=== PATIENT | female | born 1965 | race Caucasian/White ===

== ENCOUNTER 2019-02-09 16:09 | Emergency (ER) | payer OTHER ==
[~2019-02-09] VITALS: Ht 180.3 cm; Wt 113.4 kg
--- NOTE | 2019-02-09 16:14 | NUR ---
SARWAT RA 100 FROM HOME, C/O ABDOMINAL PAIN, NAUSEA AND VOMITING STARTED TODAY. TO ER BED 2, HOOKED TO MONITOR CHANGED TO GOWN, WARM BLANKET PROVIDED. AWAITING MD WAHL.
--- NOTE | 2019-02-09 16:16 | NUR ---
DATA WAREHOUSE DEVELOPER DEGRASSE AT BEDSIDE
--- NOTE | 2019-02-09 16:20 | NUR ---
PATIENT NOT ABLE TO PROVIDE URINE SAMPLE, MADE PRESS CLIPPINGS CUTTER AND PASTER AWARE
--- NOTE | 2019-02-09 16:27 | NUR ---
PER PATIENT "I'M ALLERGIC TO CODEINE, BUT I'M OK WITH MORPHINE AND DILAUDID".
[2019-02-09] MEDS ORDERED: MORPHINE SULFATE INJ 2 MG/ML DISP.SYRIN IV ONE (16:30)
[2019-02-09] MEDS ORDERED: IV NS 0.9% 1,000 ML BAG IV ONE (16:30)
[2019-02-09] MEDS ORDERED: ONDANSETRON HCL/PF 4 MG/2 ML VIAL IVP ONE (16:30)
[2019-02-09] MEDS ORDERED: diphenhydrAMINE HCL 50 MG/ML VIAL ONE (16:36)
[2019-02-09] MEDS ORDERED: ONDANSETRON HCL/PF 4 MG/2 ML VIAL ONE (16:36)
[2019-02-09] MEDS ORDERED: MORPHINE SULFATE INJ 4 MG/ML DISP.SYRIN ONE (16:36)
[2019-02-09] MEDS ORDERED: METOCLOPRAMIDE HCL 10 MG/2 ML VIAL ONE (16:37)
[2019-02-09 16:39] LABS: BASOPHILS # (AUTO) 0.1 /CMM (0.0-0.2); BASOPHILS % (AUTO) 0.6 % (0.0-2.0); EOSINOPHILS % (AUTO) 0.8 % (0.0-6.0); HEMATOCRIT 49 % (33-45); HEMOGLOBIN 16.6 g/dL (11.5-14.8); LYMPHOCYTES # (AUTO) 1.7 /CMM (0.8-4.8); LYMPHOCYTES % (AUTO) 11.4 % (20.0-44.0); MEAN CORPUSCULAR HGB CONC 34 g/dl (31.0-36.0); MEAN CORPUSCULAR VOLUME 90 fL (82-100); MONOCYTES # (AUTO) 0.5 /CMM (0.1-1.30); MONOCYTES % (AUTO) 3.6 % (2.0-12.0); NEUTROPHILS # (AUTO) 12.4 /CMM (1.8-8.9); NEUTROPHILS % (AUTO) 83.6 % (43.0-81.0); PLATELET COUNT (AUTO) 246 /CMM (150-450); RED BLOOD CELL COUNT(AUTO) 5.42 MIL/uL (4.0-5.2); WHITE BLOOD COUNT (AUTO) 14.8 K/uL (4.3-11.0)
[2019-02-09 16:52] LABS: CALCIUM, SERUM 9.8 mg/dL (8.5-10.1)
[2019-02-09] MEDS ORDERED: diphenhydrAMINE HCL 50 MG/ML VIAL IV ONE (17:00)
[2019-02-09] MEDS ORDERED: METOCLOPRAMIDE HCL 10 MG/2 ML VIAL IV ONE (17:00)
[2019-02-09 17:04] LABS: ALBUMIN 3.9 g/dL (3.4-5.0); BILIRUBIN,DIRECT 0.1 mg/dL (0.0-0.2); BILIRUBIN,TOTAL 0.4 mg/dL (0.2-1.0); TOTAL PROTEIN, SERUM 8.4 g/dL (6.4-8.2)
--- NOTE | 2019-02-09 17:55 | NUR ---
IV removed. Catheter intact and site benign. Pressure and 4x4 applied to site. No bleeding noted.Patient discharged to home in stable condition. Written and verbal after care instructions given. Patient verbalizes understanding of instruction.
[2019-02-09 18:01] VITALS: BP 167/82
== END 2019-02-09 18:02 | disposition home or self-care (01) ==
LOC: ER 16:11
DX: R11.2 Nausea with vomiting, unspecified (principal); R10.84 Generalized abdominal pain; E66.01 Morbid (severe) obesity due to excess calories; I10 Essential (primary) hypertension; Z68.34 Body mass index [BMI] 34.0-34.9, adult; Z88.5 Allergy status to narcotic agent
CPT/HCPCS: 36415; 80048; 80076; 82962; 83690; 85025; 85730; 96361; 96374; 96375; 99283; J1200; J2270; J2405; J2765; J7030 ×2

== ENCOUNTER 2020-04-14 11:59 | Emergency (ER) | payer OTHER ==
[~2020-04-14] VITALS: Ht 172.7 cm; Wt 113.4 kg
--- NOTE | 2020-04-14 12:05 | NUR ---
DR. TOBAR AT FOR EVAL.
[2020-04-14] MEDS ORDERED: NITROGLYCERIN 0.4 MG/TAB BOTTLE ONE (12:12)
[2020-04-14] MEDS ORDERED: ASPIRIN 325 MG TABLET ONE (12:13)
[2020-04-14] MEDS ORDERED: ASPIRIN 325 MG TABLET PO ONE (12:30)
[2020-04-14] MEDS ORDERED: IV NS 0.9% 1,000 ML BAG IV ONE (12:30)
[2020-04-14] MEDS ORDERED: ONDANSETRON HCL/PF 4 MG/2 ML VIAL IVP ONE (12:30)
[2020-04-14] MEDS ORDERED: KETOROLAC TROMETHAMINE INJ 30 MG/ML VIAL IV ONE (12:30)
[2020-04-14] MEDS ORDERED: NITROGLYCERIN 0.4 MG/TAB BOTTLE SL ONE (12:30)
[2020-04-14] MEDS ORDERED: ONDANSETRON HCL/PF 4 MG/2 ML VIAL ONE (12:35)
[2020-04-14] MEDS ORDERED: KETOROLAC TROMETHAMINE 15 MG/ML VIAL ONE (12:35)
--- NOTE | 2020-04-14 12:48 | NUR ---
[id number] PT C/O CP X 1WK, DENIES CP, SOB, DIZZINESS AT THIS TIME. PT ONLY C/O ABD PAIN & NAUSEA. PLACED ON SIGN BOARD ERECTOR, SR. MEDICATED FOR PAIN & NAUSEA PER ERMD ORDER, PT AJAY WELL. WILL CONT TO MONITOR.
[2020-04-14 12:52] LABS: BASOPHILS # (AUTO) 0.1 /CMM (0.0-0.2); BASOPHILS % (AUTO) 0.6 % (0.0-2.0); EOSINOPHILS % (AUTO) 2.3 % (0.0-6.0); HEMATOCRIT 48 % (33-45); HEMOGLOBIN 16.2 g/dL (11.5-14.8); LYMPHOCYTES # (AUTO) 2.3 /CMM (0.8-4.8); LYMPHOCYTES % (AUTO) 20.1 % (20.0-44.0); MEAN CORPUSCULAR HGB CONC 34 g/dl (31.0-36.0); MEAN CORPUSCULAR VOLUME 90 fL (82-100); MONOCYTES # (AUTO) 0.8 /CMM (0.1-1.30); MONOCYTES % (AUTO) 6.7 % (2.0-12.0); NEUTROPHILS # (AUTO) 8.1 /CMM (1.8-8.9); NEUTROPHILS % (AUTO) 70.3 % (43.0-81.0); PLATELET COUNT (AUTO) 249 /CMM (150-450); RED BLOOD CELL COUNT(AUTO) 5.39 MIL/uL (4.0-5.2); WHITE BLOOD COUNT (AUTO) 11.5 K/uL (4.3-11.0)
[2020-04-14 12:57] LABS: CALCIUM, SERUM 9.6 mg/dL (8.5-10.1); CARBON DIOXIDE 27 mmol/L (21-32); CHLORIDE 103 mmol/L (98-107); CREATININE 0.9 mg/dL (0.6-1.3); GLUCOSE 129 mg/dL (74-106); POTASSIUM 3.9 mmol/L (3.5-5.1); SODIUM SERUM 140 mmol/L (136-145); UREA NITROGEN, BLOOD 16 mg/dL (7-18)
[2020-04-14 13:10] LABS: B-TYPE NATRIURETIC PEPTIDE 11 PG/ML (0-125)
[2020-04-14 13:26] LABS: ALBUMIN 3.4 g/dL (3.4-5.0); BILIRUBIN,DIRECT 0.1 mg/dL (0.0-0.2); BILIRUBIN,TOTAL 0.4 mg/dL (0.2-1.0); TOTAL PROTEIN, SERUM 7.5 g/dL (6.4-8.2)
--- NOTE | 2020-04-14 15:12 | NUR ---
PT STABLE, DENIES CP, SOB, DIZZINESS, N/V AT THIS TIME. WILL CONT TO MONITOR.
[2020-04-14 16:29] LABS: BILIRUBIN,URINE SMALL (NEGATIVE); BLOOD, URINE LARGE Ery/uL (NEGATIVE); COLOR,URINE YELLOW (YELLOW); LEUKOCYTE ESTERASE ,URINE NEGATIVE (NEGATIVE); NITRITE, URINE NEGATIVE (NEGATIVE); PH,URINE 5.5 (5.0-8.0); PROTEIN,URINE TRACE mg/dl (NEGATIVE); UGLUCOSE NEGATIVE (NEGATIVE); UROBILINOGEN,URINE 0.2 EU/dL (0.2)
[2020-04-14 16:38] LABS: BACTERIA,URINE 1+ /HPF (None Seen)
[2020-04-14 16:39] LABS: MUCUS,URINE Few /LPF (None Seen)
--- NOTE | 2020-04-14 17:35 | NUR ---
Patient discharged to home in stable condition. Written and verbal after care instructions given. Patient verbalizes understanding of instruction. IV removed. Catheter intact and site benign. Pressure and 4x4 applied to site. No bleeding noted.
[2020-04-14 17:36] VITALS: BP 124/76
== END 2020-04-14 17:37 | disposition home or self-care (01) ==
LOC: ER 12:06
DX: R10.11 Right upper quadrant pain (principal); R10.31 Right lower quadrant pain; R07.89 Other chest pain; F17.200 Nicotine dependence, unspecified, uncomplicated; E11.9 Type 2 diabetes mellitus without complications; I10 Essential (primary) hypertension; Z90.49 Acquired absence of other specified parts of digestive tract; Z88.5 Allergy status to narcotic agent
CPT/HCPCS: 36415; 71045; 74176; 76705; 80048; 80076; 81001; 83690; 83880; 84484; 85025; 93005 ×2; 96361; 96374; 96375; 99285; 99406; J1885; J2405; J7030

== ENCOUNTER 2021-02-26 23:07 | Emergency (ER) | payer OTHER ==
[~2021-02-26] VITALS: Ht 180.3 cm; Wt 136.1 kg
--- NOTE | 2021-02-26 23:22 | NUR ---
PT BIBRA C/O R FLANK PAIN X4 DAYS. PT AAOX4 BREATHING EVENLY AND UNLABORED. PT ATTACHED TO MONITOR AND POX. PER PT, SHE TOOK IBUPROFEN AND A "PIECE OF NORCO" BUT FELT NO RELIEF. PT SKIN WARM AND DRY. PT GIVEN BLANKET AND CALL LIGHT WITHIN REACH
--- NOTE | 2021-02-26 23:54 | NUR ---
blood sent to lab
[2021-02-27] MEDS ORDERED: KETOROLAC TROMETHAMINE INJ 30 MG/ML VIAL ONE
[2021-02-27] MEDS ORDERED: KETOROLAC TROMETHAMINE INJ 30 MG/ML VIAL IV ONE
[2021-02-27 00:04] LABS: CREATININE 1.2 mg/dL (0.6-1.3); POTASSIUM 4.1 mmol/L (3.5-5.1)
[2021-02-27 00:06] LABS: BASOPHILS # (AUTO) 0.1 K/uL (0.0-0.2); BASOPHILS % (AUTO) 0.6 % (0.0-2.0); EOSINOPHILS % (AUTO) 2.6 % (0.0-6.0); HEMATOCRIT 46 % (33-45); HEMOGLOBIN 15.3 g/dL (11.5-14.8); LYMPHOCYTES # (AUTO) 2.7 K/uL (0.8-4.8); LYMPHOCYTES % (AUTO) 24.1 % (20.0-44.0); MEAN CORPUSCULAR HGB CONC 34 g/dl (31.0-36.0); MEAN CORPUSCULAR VOLUME 90 fL (82-100); MONOCYTES # (AUTO) 0.7 K/uL (0.1-1.30); MONOCYTES % (AUTO) 6.1 % (2.0-12.0); NEUTROPHILS # (AUTO) 7.5 K/uL (1.8-8.9); NEUTROPHILS % (AUTO) 66.6 % (43.0-81.0); PLATELET COUNT (AUTO) 217 K/uL (150-450); RED BLOOD CELL COUNT(AUTO) 5.07 MIL/uL (4.0-5.2); WHITE BLOOD COUNT (AUTO) 11.3 K/uL (4.3-11.0)
[2021-02-27 00:09] LABS: ALBUMIN 3.4 g/dL (3.4-5.0); BILIRUBIN,DIRECT 0.1 mg/dL (0.0-0.2); BILIRUBIN,TOTAL 0.3 mg/dL (0.2-1.0); TOTAL PROTEIN, SERUM 7.3 g/dL (6.4-8.2)
--- NOTE | 2021-02-27 00:09 | NUR ---
TAKEN TO CT
--- NOTE | 2021-02-27 00:15 | NUR ---
RETURNED FROM CT
[2021-02-27 00:20] LABS: CALCIUM, SERUM 9.3 mg/dL (8.5-10.1)
[2021-02-27] MEDS ORDERED: ONDANSETRON HCL/PF 4 MG/2 ML VIAL ONE (00:21)
[2021-02-27] MEDS ORDERED: ONDANSETRON HCL/PF 4 MG/2 ML VIAL IV ONE (00:30)
[2021-02-27] MEDS ORDERED: IV NS 0.9% 1,000 ML BAG IV ONE (00:30)
--- NOTE | 2021-02-27 01:22 | NUR ---
URINE SENT TO LAB
[2021-02-27 01:25] LABS: BILIRUBIN,URINE SMALL (NEGATIVE); COLOR,URINE YELLOW (YELLOW); LEUKOCYTE ESTERASE ,URINE Negative (NEGATIVE); NITRITE, URINE Negative (NEGATIVE); PH,URINE 5.5 (5.0-8.0); PROTEIN,URINE 30 mg/dl (NEGATIVE); UGLUCOSE Negative (NEGATIVE); UROBILINOGEN,URINE 0.2 EU/dL (0.2)
--- NOTE | 2021-02-27 02:11 | NUR ---
Patient discharged to home in stable condition. Written and verbal after care instructions given. Patient verbalizes understanding of instruction. IV removed. Catheter intact and site benign. Pressure and 4x4 applied to site. No bleeding noted. Pt ambulatory with a steady gait. Pt awaiting ride home
[2021-02-27 02:19] VITALS: BP 147/65
== END 2021-02-27 02:11 | disposition home or self-care (01) ==
LOC: ER 23:15
DX: M54.50 Low back pain, unspecified (principal); K59.00 Constipation, unspecified; I10 Essential (primary) hypertension; E11.9 Type 2 diabetes mellitus without complications; Z88.5 Allergy status to narcotic agent; Z88.6 Allergy status to analgesic agent
CPT/HCPCS: 36415; 74176; 80048; 80076; 81003; 83690; 85025; 96361; 96374; 96375; 99284; J1885; J2405; J7030

== ENCOUNTER 2021-04-23 08:42 | Inpatient (IN) | payer OTHER ==
[~2021-04-23] VITALS: Ht 180.3 cm; Wt 117.9 kg
--- NOTE | 2021-04-23 08:42 | NUR ---
PT [id number] HOME FOR WORSENING COUGH/SOB. TESTED POSITIVE FOR COVID 3 DAYS AGO. PT IS AAOX4, HOOKED TO O2 VIA NC AT 3LPM, HOOKED TO [employer] FIELD COORDINATOR, KEPT RESTED AND COMFORTABLE. WILL CONTINUE TO MONITOR.
--- NOTE | 2021-04-23 08:46 | NUR ---
SEEN AND EXAMINED BY .
--- NOTE | 2021-04-23 08:50 | NUR ---
IV LINE ESTABLISHED BLOOD DRAWN AND SENT TO LAB.
--- NOTE | 2021-04-23 08:58 | NUR ---
VOLUNTEER SERVICES COORDINATOR AT BEDSIDE FOR XRAY.
[2021-04-23] MEDS ORDERED: KETOROLAC TROMETHAMINE INJ 30 MG/ML VIAL IV ONE (09:00)
[2021-04-23] MEDS ORDERED: IV NS 0.9% 1,000 ML IV ONE (09:00)
--- NOTE | 2021-04-23 09:03 | NUR ---
MOVE SHEET SUBMITTED AND CALLED FOR TELE BED.
[2021-04-23 09:04] LABS: BASOPHILS % (AUTO) 0.9 % (0.0-2.0); EOSINOPHILS % (AUTO) 0.4 % (0.0-6.0); HEMATOCRIT 47 % (33-45); HEMOGLOBIN 15.9 g/dL (11.5-14.8); LYMPHOCYTES # (AUTO) 1.2 K/uL (0.8-4.8); LYMPHOCYTES % (AUTO) 28.8 % (20.0-44.0); MEAN CORPUSCULAR HGB CONC 34 g/dl (31.0-36.0); MEAN CORPUSCULAR VOLUME 89 fL (82-100); MONOCYTES # (AUTO) 0.3 K/uL (0.1-1.30); NEUTROPHILS # (AUTO) 2.6 K/uL (1.8-8.9); NEUTROPHILS % (AUTO) 62.9 % (43.0-81.0); PLATELET COUNT (AUTO) 128 K/uL (150-450); RED BLOOD CELL COUNT(AUTO) 5.21 MIL/uL (4.0-5.2); WHITE BLOOD COUNT (AUTO) 4.1 K/uL (4.3-11.0)
[2021-04-23] MEDS ORDERED: KETOROLAC TROMETHAMINE 15 MG/ML VIAL ONE (09:06)
[2021-04-23] MEDS ORDERED: HYDR-3972 PO (09:09)
[2021-04-23] MEDS ORDERED: LORA-259 PO (09:09)
[2021-04-23] MEDS ORDERED: FLUT1BLS12 INH (09:09)
[2021-04-23] MEDS ORDERED: ATOR40TA PO (09:09)
[2021-04-23] MEDS ORDERED: ASPI-1420 PO (09:09)
[2021-04-23] MEDS ORDERED: ZOLP5TAB8 PO (09:09)
[2021-04-23] MEDS ORDERED: ATEN25TA PO (09:09)
[2021-04-23] MEDS ORDERED: methylPREDNISolone SOD SUCC 125 MG/2ML VIAL ONE (09:13)
[2021-04-23 09:15] LABS: CALCIUM, SERUM 8.9 mg/dL (8.5-10.1); CARBON DIOXIDE 27 mmol/L (21-32); CHLORIDE 102 mmol/L (98-107); CREATININE 0.9 mg/dL (0.6-1.3); GLUCOSE 199 mg/dL (74-106); POTASSIUM 4.1 mmol/L (3.5-5.1); SODIUM SERUM 137 mmol/L (136-145); UREA NITROGEN, BLOOD 14 mg/dL (7-18)
--- NOTE | 2021-04-23 09:25 | NUR ---
COVID SPECIMEN OBTAINED AND SENT TO LAB.
[2021-04-23] MEDS ORDERED: IPRATROPIUM NEB FS 0.5 MG/2.5 ML AMPUL.NEB ONE (09:29)
[2021-04-23] MEDS ORDERED: ALBUTEROL FS 2.5 MG/3 ML VIAL.NEB ONE (09:29)
--- NOTE | 2021-04-23 09:29 | NUR ---
ROOM GIVEN 101 TELE.
[2021-04-23] MEDS ORDERED: CEFEPIME 1 GM in IV D5W 50 ML IV ONE (09:30)
[2021-04-23] MEDS ORDERED: ALBUTEROL FS 2.5 MG/3 ML VIAL.NEB NEB ONE (09:30)
[2021-04-23] MEDS ORDERED: methylPREDNISolone SOD SUCC 125 MG/2ML VIAL IV ONE (09:30)
[2021-04-23] MEDS ORDERED: IPRATROPIUM NEB FS 0.5 MG/2.5 ML AMPUL.NEB NEB ONE (09:30)
--- NOTE | 2021-04-23 09:30 | NUR ---
RT AT BEDSIDE FOR BREATHING TX.
--- NOTE | 2021-04-23 09:53 | NUR ---
REPORT GIVEN TO SCARLETT OSWALD FOR SHAUN.
[2021-04-23 10:04] LABS: CREATINE KINASE, TOTAL 355 U/L (26-192)
[2021-04-23 10:10] LABS: C-REACTIVE PROTEIN 2.7 mg/dL (0.0-0.9)
--- NOTE | 2021-04-23 10:42 | NUR ---
[facility] CALLED CIVIL ENGINEERING DRAFTSPERSON PAGED.
[2021-04-23] MEDS: ENOXAPARIN SODIUM 40 MG/0.4 ML DISP.SYRIN SQ SCH (11:27)
--- NOTE | 2021-04-23 11:30 | NUR ---
RN NOTES REPORTED RECEIVED FROM ER NURSE, PT CAME FROM HOME FOR WORSENING COUGH/SOB. TESTED POSITIVE FOR COVID 3 DAYS AGO. RAPID POSITIVE TODAY, RECEIVED IN BED AAOX4, IN STABLE CONDITION O2 VIA NC AT 3LPM, TELE READING SR HR 89, AMBULATORY, WITH NO SIGN OF DISTRESS AT THIS TIME, KEPT RESTED AND COMFORTABLE. ISOLATION PRECAUTIONS IN PLACE, SAFETY MEASURES IMPLEMENTED BED LOCKED AND IN LOWEST POSITION CALL LIGHT WITHIN REACH WILL CONTINUE TO MONITOR
[2021-04-23 11:46] LABS: BILIRUBIN,DIRECT 0.1 mg/dL (0.0-0.2); BILIRUBIN,TOTAL 0.3 mg/dL (0.2-1.0)
[2021-04-23 11:47] LABS: BILIRUBIN,DIRECT 0.1 mg/dL (0.0-0.2); BILIRUBIN,TOTAL 0.4 mg/dL (0.2-1.0)
[2021-04-23 12:00] VITALS: BP 120/60
[2021-04-23] MEDS ORDERED: ZOLPIDEM TARTRATE 5 MG TABLET PO PRN ×2 (12:00→15:00)
[2021-04-23] MEDS ORDERED: MAGNESIUM HYDROXIDE 30 ML UDC PO PRN (12:00)
[2021-04-23] MEDS ORDERED: *INSULIN REGULAR(HUMULIN R)HUM 100 UNIT/ML VIAL SQ PRN (12:00)
[2021-04-23] MEDS ORDERED: DEXTROSE 50%-WATER 50 ML DISP.SYRIN IV PRN (12:00)
[2021-04-23] MEDS ORDERED: MAG HYDROX/AL HYDROX/SIMETH 30 ML UDC PO PRN (12:00)
[2021-04-23] MEDS ORDERED: Z GUARD REMEDY 2 OZ OINT TP PRN (12:00)
[2021-04-23] MEDS ORDERED: ONDANSETRON HCL/PF 4 MG/2 ML VIAL IVP PRN (12:00)
[2021-04-23] MEDS: BLOOD SUGAR DIAGNOSTIC 1 EACH STRIP VI SCH ×3 (12:18→22:55)
[2021-04-23] MEDS: INSULIN REGULAR, HUMAN 100 UNIT/ML 3 ML VIAL SQ PRN ×3 (12:31→23:00)
[2021-04-23] MEDS: ACETAMINOPHEN 325 MG TABLET PO PRN ×2 (12:32→18:35)
--- NOTE | 2021-04-23 13:04 | NUR ---
RN NOTES PT CONSUMED 100% OF LUNCH, TYLENOL GIVEN FOR LOW BACK PAIN, BLOOD SUGAR CHECKED 266, INSULIN 9 UNITS ADMINISTERED WILL CONTINUE TO MONITOR
[2021-04-23] MEDS ORDERED: KETOROLAC TROMETHAMINE INJ 30 MG/ML VIAL IM PRN (15:00)
[2021-04-23] MEDS ORDERED: LORAZEPAM 1 MG TABLET PO PRN (15:00)
--- NOTE | 2021-04-23 15:00 | NUR ---
RN NOTE SPOKE TO PHARMACY PER DOCTOR IS OK TO GIVE HYDROCODONE PRN
[2021-04-23 16:00] VITALS: BP 127/69
[2021-04-23] MEDS ORDERED: ATORVASTATIN 40 MG TABLET PO SCH (18:00)
[2021-04-23] MEDS: GUAIFENESIN/D-METHORPHAN HB 5 ML UDC PO PRN (18:35)
--- NOTE | 2021-04-23 18:39 | NUR ---
RN NOTES RT REMAINS IN BED POSITIVE FOR COVID 3 DAYS AGO. RAPID POSITIVE TODAY, AAOX4, IN STABLE CONDITION O2 VIA NC AT 3LPM, 96% TELE READING SR HR 72, AMBULATORY, WITH NO SIGN OF DISTRESS AT THIS TIME, IV IN THE RIGHT HAND #20 PATENT AND FLUSHING WELL, ALL NEEDS MET, KEPT COMFORTABLE. ISOLATION PRECAUTIONS IN PLACE, SAFETY MEASURES IMPLEMENTED BED LOCKED AND IN LOWEST POSITION CALL LIGHT WITHIN REACH WILL ENDORSE TO CLINICAL COURIERKNOBBER
[2021-04-23 20:00] VITALS: BP 124/49
[2021-04-24] VITALS: BP 127/63
[2021-04-24 04:00] VITALS: BP 140/55
[2021-04-24 06:49] LABS: BASOPHILS % (AUTO) 0.2 % (0.0-2.0); HEMATOCRIT 43 % (33-45); HEMOGLOBIN 14.8 g/dL (11.5-14.8); LYMPHOCYTES # (AUTO) 0.7 K/uL (0.8-4.8); LYMPHOCYTES % (AUTO) 23.6 % (20.0-44.0); MEAN CORPUSCULAR HGB CONC 35 g/dl (31.0-36.0); MEAN CORPUSCULAR VOLUME 89 fL (82-100); MONOCYTES # (AUTO) 0.4 K/uL (0.1-1.30); MONOCYTES % (AUTO) 12.6 % (2.0-12.0); NEUTROPHILS # (AUTO) 1.8 K/uL (1.8-8.9); NEUTROPHILS % (AUTO) 63.6 % (43.0-81.0); PLATELET COUNT (AUTO) 127 K/uL (150-450); RED BLOOD CELL COUNT(AUTO) 4.85 MIL/uL (4.0-5.2); WHITE BLOOD COUNT (AUTO) 2.8 K/uL (4.3-11.0)
[2021-04-24] MEDS: GUAIFENESIN/D-METHORPHAN HB 5 ML UDC PO PRN ×2 (06:59→13:38)
[2021-04-24] MEDS: ACETAMINOPHEN 325 MG TABLET PO PRN (07:00)
[2021-04-24 07:12] LABS: CALCIUM, SERUM 9.1 mg/dL (8.5-10.1); CREATININE 0.8 mg/dL (0.6-1.3); MAGNESIUM 1.7 mg/dL (1.8-2.4); PHOSPHORUS 2.7 mg/dL (2.5-4.9); POTASSIUM 4.6 mmol/L (3.5-5.1)
[2021-04-24] MEDS ORDERED: PANTOPRAZOLE 40 MG TABLET.DR PO SCH (07:30)
--- NOTE | 2021-04-24 07:35 | NUR ---
RN OPENING NOTE PATIENT RECEIVED IN BED, RESTING. PATIENT ON 3L O2 NC WITH NO SIGNS OF LABORED BREATHING AT THIS TIME. RIGHT HAND 20G IV IN PLACE, PATENT WITH NO SIGNS OF INFILTRATION. NO DISTRESS NOTED AT THIS TIME. BED LOCKED AND IN LOWEST POSITION, CALL LIGHT WITHIN REACH, 2 SIDE RAILS UP. ALL SAFETY MEASURES IMPLEMENTED. WILL CONTINUE TO MONITOR.
[2021-04-24 08:00] VITALS: BP 134/75
[2021-04-24] MEDS: BLOOD SUGAR DIAGNOSTIC 1 EACH STRIP VI SCH ×2 (08:07→11:43)
[2021-04-24] MEDS: INSULIN REGULAR, HUMAN 100 UNIT/ML 3 ML VIAL SQ PRN ×2 (08:17→11:43)
[2021-04-24] MEDS: ENOXAPARIN SODIUM 40 MG/0.4 ML DISP.SYRIN SQ SCH (08:18)
[2021-04-24] MEDS ORDERED: ASPIRIN EC 81 MG TABLET.DR PO SCH (09:00)
[2021-04-24] MEDS ORDERED: FLUTICASONE/VILANTEROL 1 EACH BLST.W.DEV IH SCH (09:00)
[2021-04-24] MEDS ORDERED: DEXAMETHASONE SOD PHOSPHATE 10 MG/ML VIAL IV SCH (09:00)
[2021-04-24] MEDS ORDERED: ATENOLOL 25 MG TABLET PO SCH (09:00)
[2021-04-24] MEDS: HYDROCODONE/APAP 5/325MG TABLET PO PRN ×2 (09:01→16:14)
[2021-04-24 09:55] LABS: THYROID STIMULATING HORMONE 0.244 uIU/mL (0.358-3.74)
[2021-04-24] MEDS ORDERED: MAGNESIUM OXIDE 400 MG TABLET PO ONE (11:00)
[2021-04-24 12:00] VITALS: BP 109/54
[2021-04-24] MEDS ORDERED: INSU100V7 SQ (15:05)
[2021-04-24] MEDS ORDERED: METH4TAB3 PO (15:05)
[2021-04-24] MEDS ORDERED: PANT40TA49 PO (15:05)
[2021-04-24 16:00] VITALS: BP 136/62
--- NOTE | 2021-04-24 18:19 | NUR ---
RN NOTE PATIENT DISCHARGED PER ORDER. PATIENT MEDICALLY STABLE AT TIME ON DISCHARGE. ON ROOM AIR WITH NO SIGNS OF LABORED BREATHING. ALL IV LINES REMOVED. PATIENT LEFT THE FACILITY WITH AMBULANCE CREW TO HOME.
== END 2021-04-24 06:15 | disposition home or self-care (01) | DRG 137 ==
LOC: ER 08:43 → TELE1 09:36
PROVIDERS: ADMIT Student in an Organized Health Care Education/Training Program; ATTEND Student in an Organized Health Care Education/Training Program
DX: U07.1 COVID-19 (principal); J96.01 Acute respiratory failure with hypoxia; J12.82 Pneumonia due to coronavirus disease 2019; E44.0 Moderate protein-calorie malnutrition; D69.6 Thrombocytopenia, unspecified; E11.9 Type 2 diabetes mellitus without complications; E66.01 Morbid (severe) obesity due to excess calories; D72.819 Decreased white blood cell count, unspecified; Z83.3 Family history of diabetes mellitus; Z68.34 Body mass index [BMI] 34.0-34.9, adult; Z88.5 Allergy status to narcotic agent; K76.0 Fatty (change of) liver, not elsewhere classified; R59.0 Localized enlarged lymph nodes; Z87.891 Personal history of nicotine dependence; I10 Essential (primary) hypertension; Z82.49 Family history of ischemic heart disease and other diseases of the circulatory system; Z80.9 Family history of malignant neoplasm, unspecified
CPT/HCPCS: 36415; 71045-TC; 71250-TC; 80048-TC; 80061-TC; 80076-TC; 82247-TC; 82248-TC; 82550-TC; 82553; 83605-TC; 83615-TC; 83735-TC; 83880; 84100-TC; 84443-TC; 84484-TC; 85025-TC; 85378-TC; 86140-TC; 87040-TC; G0378; J0692; J1100; J1650; J1815; J1885; J2930; J7030; J7060; U0003

== ENCOUNTER 2021-10-11 03:09 | Emergency (ER) | payer OTHER ==
[~2021-10-11] VITALS: Ht 180.3 cm; Wt 117.9 kg
[~2021-10-11 03:09] MED LIST: ASPI-1420 PO; ATEN25TA PO; ATOR40TA PO; FLUT1BLS12 INH; HYDR-3972 PO; INSU100V7 SQ; LORA-259 PO; METH4TAB3 PO; PANT40TA49 PO; ZOLP5TAB8 PO
--- NOTE | 2021-10-11 03:20 | NUR ---
[id number] FROM HOME C/O NON TRUAMATIC CHRONIC LOWER RIGHT BACK PAIN. TYLENOL ROTATIONAL MOULDING OPERATOR. PATIENT ALERT AND ORIENTED X3. AMBULATORY WITH NON LABORED BREATHING IN BED 09 AWAITING MD WAHL.
[2021-10-11] MEDS ORDERED: IV NS 0.9% 1,000 ML BAG IV ONE (03:30)
[2021-10-11] MEDS ORDERED: KETOROLAC TROMETHAMINE INJ 30 MG/ML VIAL IV ONE (03:30)
[2021-10-11] MEDS ORDERED: ONDANSETRON HCL/PF 4 MG/2 ML VIAL IVP ONE (03:30)
[2021-10-11] MEDS ORDERED: ONDANSETRON HCL/PF 4 MG/2 ML VIAL ONE (03:30)
[2021-10-11] MEDS ORDERED: KETOROLAC TROMETHAMINE INJ 30 MG/ML VIAL ONE (03:31)
--- NOTE | 2021-10-11 03:32 | NUR ---
URINE COLLECTED AND SENT TO LAB
--- NOTE | 2021-10-11 03:33 | NUR ---
BLOOD AND URINE COLLECTED AND SENT TO LAB
[2021-10-11 03:52] LABS: BASOPHILS # (AUTO) 0.1 K/uL (0.0-0.2); BASOPHILS % (AUTO) 0.8 % (0.0-2.0); EOSINOPHILS % (AUTO) 2.4 % (0.0-6.0); HEMATOCRIT 44 % (33-45); HEMOGLOBIN 14.9 g/dL (11.5-14.8); LYMPHOCYTES # (AUTO) 2.2 K/uL (0.8-4.8); LYMPHOCYTES % (AUTO) 19.4 % (20.0-44.0); MEAN CORPUSCULAR HGB CONC 34 g/dl (31.0-36.0); MEAN CORPUSCULAR VOLUME 89 fL (82-100); MONOCYTES # (AUTO) 0.7 K/uL (0.1-1.30); MONOCYTES % (AUTO) 6.1 % (2.0-12.0); NEUTROPHILS % (AUTO) 71.3 % (43.0-81.0); PLATELET COUNT (AUTO) 214 K/uL (150-450); RED BLOOD CELL COUNT(AUTO) 4.92 MIL/uL (4.0-5.2); WHITE BLOOD COUNT (AUTO) 11.3 K/uL (4.3-11.0)
[2021-10-11 03:54] LABS: BILIRUBIN,URINE NEGATIVE (NEGATIVE); COLOR,URINE YELLOW (YELLOW); LEUKOCYTE ESTERASE ,URINE NEGATIVE (NEGATIVE); NITRITE, URINE NEGATIVE (NEGATIVE); PH,URINE 5.5 (5.0-8.0); PROTEIN,URINE NEGATIVE (NEGATIVE); UGLUCOSE NEGATIVE (NEGATIVE); UROBILINOGEN,URINE 0.2 EU/dL (0.2)
[2021-10-11 04:00] LABS: CREATININE 1.1 mg/dL (0.6-1.3); POTASSIUM 3.9 mmol/L (3.5-5.1)
[2021-10-11 04:06] LABS: ALBUMIN 3.4 g/dL (3.4-5.0); BILIRUBIN,DIRECT 0.1 mg/dL (0.0-0.2); BILIRUBIN,TOTAL 0.3 mg/dL (0.2-1.0); TOTAL PROTEIN, SERUM 7.2 g/dL (6.4-8.2)
--- NOTE | 2021-10-11 04:30 | NUR ---
PT TAKEN FOR CT SCAN
--- NOTE | 2021-10-11 05:24 | NUR ---
IV removed. Catheter intact and site benign. Pressure and 4x4 applied to site. No bleeding noted.
--- NOTE | 2021-10-11 05:24 | NUR ---
Patient discharged to home in stable condition. Written and verbal after care instructions given. Patient verbalizes understanding of instruction.
[2021-10-11 05:26] VITALS: BP 159/76
[2021-10-11 08:33] LABS: WBC,URINE 0-3 /HPF (0-3)
[2021-10-11 08:34] LABS: BACTERIA,URINE Rare /HPF (None Seen); SQUAMOUS EPITHELIAL CELL,UR Few /HPF (None Seen); URIC ACID CRYSTALS,URINE Few /HPF (None Seen)
== END 2021-10-11 05:27 | disposition home or self-care (01) ==
LOC: ER 03:20
DX: M54.50 Low back pain, unspecified (principal); I10 Essential (primary) hypertension; E11.9 Type 2 diabetes mellitus without complications; Z88.8 Allergy status to other drugs, medicaments and biological substances; Z79.899 Other long term (current) drug therapy
CPT/HCPCS: 36415; 74176; 80048; 80076; 81001; 83690; 85025; 85730; 96361; 96374; 96375; 99284; J1885; J2405; J7030

== ENCOUNTER 2022-04-01 16:49 | Emergency (ER) | payer MEDICAID, OTHER ==
[~2022-04-01] VITALS: Ht 180.3 cm; Wt 93.0 kg
--- NOTE | 2022-04-01 16:55 | NUR ---
[id number] C/O WORSENING LOWER BACK PAIN X 5 DAYS S/P MOVING BOXES. PLACED ON BED, AAOX4, IN PAIN 10 PS
--- NOTE | 2022-04-01 17:20 | NUR ---
PATIENT TAKEN TO CT VIA IVANA
[2022-04-01] MEDS ORDERED: KETOROLAC TROMETHAMINE INJ 60 MG/2 ML VIAL IM ONE (17:30)
[2022-04-01] MEDS: IV NS 0.9% 1,000 ML BAG IV ONE (18:15)
--- NOTE | 2022-04-01 18:18 | NUR ---
blood drawn and sent to lab
[2022-04-01] MEDS ORDERED: KETOROLAC TROMETHAMINE INJ 30 MG/ML VIAL ONE (18:23)
[2022-04-01] MEDS ORDERED: ONDANSETRON HCL/PF 4 MG/2 ML VIAL ONE (18:23)
[2022-04-01] MEDS: ONDANSETRON HCL/PF - ER 4 MG/2 ML VIAL IV ONE (18:25)
[2022-04-01] MEDS: KETOROLAC TROMETHAMINE INJ 30 MG/ML VIAL IV ONE (18:26)
[2022-04-01 18:32] LABS: BASOPHILS # (AUTO) 0.1 K/uL (0.0-0.2); BASOPHILS % (AUTO) 0.8 % (0.0-2.0); EOSINOPHILS % (AUTO) 2.2 % (0.0-6.0); HEMATOCRIT 44 % (33-45); HEMOGLOBIN 15.2 g/dL (11.5-14.8); LYMPHOCYTES # (AUTO) 3.3 K/uL (0.8-4.8); LYMPHOCYTES % (AUTO) 28.8 % (20.0-44.0); MEAN CORPUSCULAR HGB CONC 34 g/dl (31.0-36.0); MEAN CORPUSCULAR VOLUME 87 fL (82-100); MONOCYTES # (AUTO) 0.8 K/uL (0.1-1.30); MONOCYTES % (AUTO) 7.2 % (2.0-12.0); NEUTROPHILS # (AUTO) 6.9 K/uL (1.8-8.9); PLATELET COUNT (AUTO) 215 K/uL (150-450); RED BLOOD CELL COUNT(AUTO) 5.09 MIL/uL (4.0-5.2); WHITE BLOOD COUNT (AUTO) 11.4 K/uL (4.3-11.0)
[2022-04-01 18:58] LABS: CREATININE 1.1 mg/dL (0.6-1.3); POTASSIUM 3.6 mmol/L (3.5-5.1)
[2022-04-01 19:03] LABS: ALBUMIN 3.2 g/dL (3.4-5.0); BILIRUBIN,DIRECT 0.1 mg/dL (0.0-0.2); BILIRUBIN,TOTAL 0.3 mg/dL (0.2-1.0)
--- NOTE | 2022-04-01 19:28 | NUR ---
URINE SAMPLE SENT TO LAB
[2022-04-01 19:57] LABS: BILIRUBIN,URINE NEGATIVE (NEGATIVE); COLOR,URINE YELLOW (YELLOW); LEUKOCYTE ESTERASE ,URINE NEGATIVE (NEGATIVE); NITRITE, URINE NEGATIVE (NEGATIVE); PROTEIN,URINE NEGATIVE (NEGATIVE); UGLUCOSE NEGATIVE (NEGATIVE); UROBILINOGEN,URINE 0.2 EU/dL (0.2)
[2022-04-01 20:13] LABS: RBC,URINE TOO NUMEROUS TO COUN /HPF (0-2); WBC,URINE 0-2 /HPF (0-3)
[2022-04-01 20:14] LABS: BACTERIA,URINE None seen /HPF (None Seen); SQUAMOUS EPITHELIAL CELL,UR 0-2 /HPF (None Seen)
[2022-04-01] MEDS ORDERED: CYCLOBENZAPRINE 10 MG TABLET ONE (20:42)
[2022-04-01] MEDS: CYCLOBENZAPRINE 10 MG TABLET PO ONE (20:45)
[2022-04-01] MEDS ORDERED: IBUP-1955 PO (21:04)
--- NOTE | 2022-04-01 21:07 | NUR ---
[facility] CALLED FOR BLS GOING BACK HOME PER MELO ETA - 45 MIN
[2022-04-01 21:50] VITALS: BP 115/65
== END 2022-04-01 21:40 | disposition home or self-care (01) ==
LOC: ER 16:51
DX: M54.50 Low back pain, unspecified (principal); I10 Essential (primary) hypertension; E11.9 Type 2 diabetes mellitus without complications; G89.29 Other chronic pain; Z88.8 Allergy status to other drugs, medicaments and biological substances; Z79.899 Other long term (current) drug therapy
CPT/HCPCS: 99284; 74176; 96374; 96361; 96375; 72100; 85025; 80048; 83690; 80076; 81001; 36415; J1885; J2405 ×2

== ENCOUNTER 2022-05-18 21:21 | Emergency (ER) | payer MEDICAID ==
[~2022-05-18] VITALS: Ht 180.3 cm; Wt 113.4 kg
[~2022-05-18 21:21] MED LIST changes: +IBUP-1955 PO
--- NOTE | 2022-05-18 21:25 | NUR ---
MACKENZIERA 102 FROM HOME FOR WORSENING R FLANK PAIN S/P "SURGERY AY VPH LAST YEAR". PLACED COMFORTABLY IN BED. PT IS AAOX4. ABLE TO MAKE NEEDS KNOWN. PATIENT PS IS 10/10. VITALS CHECKED.
[2022-05-18] MEDS ORDERED: CYCLOBENZAPRINE 10 MG TABLET ONE (21:47)
[2022-05-18] MEDS ORDERED: LIDOCAINE 5% (PATCH) 1 EA PATCH TP ONE (21:47)
[2022-05-18] MEDS ORDERED: KETOROLAC TROMETHAMINE INJ 30 MG/ML VIAL ONE (21:47)
--- NOTE | 2022-05-18 21:59 | NUR ---
[facility] HERCULES NIECE [phone] CALLED
[2022-05-18] MEDS ORDERED: LIDOCAINE 5% (PATCH) 1 EA PATCH TP SCH (22:00)
[2022-05-18] MEDS ORDERED: KETOROLAC TROMETHAMINE INJ 60 MG/2 ML VIAL IM ONE (22:00)
[2022-05-18] MEDS ORDERED: CYCLOBENZAPRINE 10 MG TABLET PO ONE (22:00)
[2022-05-18] MEDS ORDERED: diphenhydrAMINE HCL 25 MG CAPSULE PO ONE (22:00)
[2022-05-18] MEDS ORDERED: diphenhydrAMINE HCL 25 MG CAPSULE ONE (22:06)
[2022-05-18] MEDS: ONDANSETRON 4 MG TAB.RAPDIS SL ONE ×2 (22:07→22:09)
[2022-05-18] MEDS ORDERED: ONDANSETRON 4 MG TAB.RAPDIS ONE (22:07)
[2022-05-18] MEDS: IBUPROFEN 400 MG TABLET PO ONE ×2 (22:08→22:09)
--- NOTE | 2022-05-18 22:26 | NUR ---
KE HERCULES [phone] PT'S COUSIN WILL SETTUP [facility] FOR D/C
--- NOTE | 2022-05-18 22:49 | NUR ---
PT ACCOMPANIED TO WAITING ROOM. WANTS TO TALK TO PIG CASTER. RN PIG CASTER MADE AWARE
--- NOTE | 2022-05-18 22:49 | NUR ---
Patient discharged to home in stable condition. Written and verbal after care instructions given. Patient verbalizes understanding of instruction.
--- NOTE | 2022-05-18 22:49 | NUR ---
TAP CARD PROVIDED BY RN DINKEY MOTOR OPERATOR
[2022-05-18 22:52] VITALS: BP 115/66
== END 2022-05-18 22:52 | disposition home or self-care (01) ==
LOC: ER 21:22
DX: M54.50 Low back pain, unspecified (principal); I10 Essential (primary) hypertension; E11.9 Type 2 diabetes mellitus without complications; Z90.49 Acquired absence of other specified parts of digestive tract; Z79.899 Other long term (current) drug therapy; Z79.4 Long term (current) use of insulin; Z79.82 Long term (current) use of aspirin; Z88.5 Allergy status to narcotic agent
CPT/HCPCS: 99284; 96372; Q0163; J1885; Q0162

== ENCOUNTER 2022-09-02 15:18 | Emergency (ER) | payer MEDICAID ==
[~2022-09-02] VITALS: Ht 170.2 cm; Wt 114.3 kg
--- NOTE | 2022-09-02 15:28 | NUR ---
Patient AOx4 able to express his concerns. States chest pain is now 1/10. Tech currently obtaining EKG.Explained POC, pt verbalized agreement. All safety precautions taken, will continue to monitor.
[2022-09-02 15:55] LABS: BASOPHILS # (AUTO) 0.1 K/uL (0.0-0.2); BASOPHILS % (AUTO) 1.3 % (0.0-2.0); EOSINOPHILS % (AUTO) 2.2 % (0.0-6.0); HEMATOCRIT 46 % (33-45); HEMOGLOBIN 15.4 g/dL (11.5-14.8); LYMPHOCYTES % (AUTO) 18.9 % (20.0-44.0); MEAN CORPUSCULAR HGB CONC 34 g/dl (31.0-36.0); MEAN CORPUSCULAR VOLUME 88 fL (82-100); MONOCYTES # (AUTO) 0.5 K/uL (0.1-1.30); MONOCYTES % (AUTO) 5.1 % (2.0-12.0); NEUTROPHILS # (AUTO) 7.7 K/uL (1.8-8.9); NEUTROPHILS % (AUTO) 72.5 % (43.0-81.0); PLATELET COUNT (AUTO) 244 K/uL (150-450); RED BLOOD CELL COUNT(AUTO) 5.21 MIL/uL (4.0-5.2); WHITE BLOOD COUNT (AUTO) 10.6 K/uL (4.3-11.0)
[2022-09-02 16:07] LABS: CALCIUM, SERUM 9.2 mg/dL (8.5-10.1); CARBON DIOXIDE 29 mmol/L (21-32); CHLORIDE 100 mmol/L (98-107); CREATININE 0.9 mg/dL (0.6-1.3); GLUCOSE 148 mg/dL (74-106); POTASSIUM 3.3 mmol/L (3.5-5.1); SODIUM SERUM 130 mmol/L (136-145); UREA NITROGEN, BLOOD 20 mg/dL (7-18)
--- NOTE | 2022-09-02 16:08 | NUR ---
XRAY AT BEDSIDE
[2022-09-02 16:21] LABS: ALANINE AMINOTRANSFERASE 28 U/L (12-78); ALBUMIN 3.4 g/dL (3.4-5.0); ALKALINE PHOSPHATASE 103 U/L (46-116); ASPARTATE AMINOTRANSFERASE 21 U/L (15-37); BILIRUBIN,DIRECT 0.1 mg/dL (0.0-0.2); BILIRUBIN,TOTAL 0.4 mg/dL (0.2-1.0); TOTAL PROTEIN, SERUM 7.6 g/dL (6.4-8.2)
[2022-09-02] MEDS ORDERED: POTASSIUM CHLORIDE 20 MEQ POWDER PACKET PO ONE (16:30)
[2022-09-02] MEDS ORDERED: KETOROLAC TROMETHAMINE INJ 30 MG/ML VIAL IV ONE (16:30)
[2022-09-02] MEDS ORDERED: KETOROLAC TROMETHAMINE INJ 30 MG/ML VIAL ONE (16:35)
[2022-09-02] MEDS ORDERED: POTASSIUM CHLORIDE 20 MEQ POWDER PACKET ONE (16:35)
[2022-09-02] MEDS ORDERED: ONDANSETRON HCL/PF 4 MG/2 ML VIAL ONE (16:42)
[2022-09-02] MEDS ORDERED: diphenhydrAMINE HCL 50 MG/ML VIAL ONE (16:42)
--- NOTE | 2022-09-02 16:57 | NUR ---
Medications administered as prescribed, patient tolerated well.
[2022-09-02] MEDS ORDERED: ONDANSETRON HCL/PF 4 MG/2 ML VIAL IV ONE (17:00)
[2022-09-02] MEDS ORDERED: diphenhydrAMINE HCL 50 MG/ML VIAL IV ONE (17:00)
[2022-09-02 18:30] VITALS: BP 129/77
[2022-09-02] MEDS ORDERED: NAPR-1164 PO (18:36)
--- NOTE | 2022-09-02 18:37 | NUR ---
Discussed discharge plan, patient verbalized agreement
--- NOTE | 2022-09-02 18:59 | NUR ---
CALLED [facility] [phone] REACHING CO-ORDINATOR LORENZO. A SUPERVISOR SHIPPING WILL CALL US BACK WITH [facility] TRANSPORT INFORMATION.
--- NOTE | 2022-09-02 19:04 | NUR ---
[facility] NOT ABLE TO OFFER TRANSPORT DUE TO PT BEING DC AT THIS TIME NOT MEETING CRITERIA.
--- NOTE | 2022-09-02 19:16 | NUR ---
Called [facility] [phone] -Jo arranged taxi burr picker ETA20 minutes. $18.00 Address: [address] [place] [address] [address], [place] Patient made aware
== END 2022-09-02 18:44 | disposition home or self-care (01) ==
LOC: ER 15:20
DX: R07.9 Chest pain, unspecified (principal); I10 Essential (primary) hypertension; E11.9 Type 2 diabetes mellitus without complications; Z20.822 Contact with and (suspected) exposure to COVID-19; Z90.49 Acquired absence of other specified parts of digestive tract; Z88.8 Allergy status to other drugs, medicaments and biological substances; Z79.899 Other long term (current) drug therapy
CPT/HCPCS: 99285; 96374; 71045; 96375; 87426; 93005 ×2; 85025; 80048; 80076; 36415; 84484 ×2; 83880; J1200; J1885; J2405; C9803

== ENCOUNTER 2023-09-16 19:48 | Emergency (ER) | payer MEDICAID ==
[~2023-09-16] VITALS: Ht 170.2 cm; Wt 113.4 kg
[~2023-09-16 19:48] MED LIST changes: +NAPR-1164 PO
[2023-09-16] MEDS ORDERED: KETOROLAC TROMETHAMINE INJ 30 MG/ML VIAL ONE (20:19)
[2023-09-16] MEDS: KETOROLAC TROMETHAMINE INJ 60 MG/2 ML VIAL IM ONE (20:24)
[2023-09-16] MEDS ORDERED: HYDROMORPHONE 1 MG/1 ML DISP.SYRIN ONE (22:03)
[2023-09-16] MEDS ORDERED: ONDANSETRON HCL/PF 4 MG/2 ML VIAL ONE (22:03)
[2023-09-16] MEDS ORDERED: diphenhydrAMINE HCL 50 MG/ML VIAL ONE (22:03)
[2023-09-16 22:31] LABS: BASOPHILS % (AUTO) 0.3 % (0.0-2.0); EOSINOPHILS # (AUTO) 0.2 K/uL (0.0-0.7); EOSINOPHILS % (AUTO) 1.2 % (0.0-6.0); HEMATOCRIT 46 % (33-45); HEMOGLOBIN 15.2 g/dL (11.5-14.8); LYMPHOCYTES # (AUTO) 1.4 K/uL (0.8-4.8); LYMPHOCYTES % (AUTO) 9.4 % (20.0-44.0); MEAN CORPUSCULAR HEMOGLOBIN 30 PG (26.0-33.0); MEAN CORPUSCULAR HGB CONC 34 g/dl (31.0-36.0); MEAN CORPUSCULAR VOLUME 88 fL (82-100); MONOCYTES # (AUTO) 0.6 K/uL (0.1-1.30); MONOCYTES % (AUTO) 3.7 % (2.0-12.0); NEUTROPHILS # (AUTO) 12.9 K/uL (1.8-8.9); NEUTROPHILS % (AUTO) 85.4 % (43.0-81.0); PLATELET COUNT (AUTO) 216 K/uL (150-450); RED BLOOD CELL COUNT(AUTO) 5.17 MIL/uL (4.0-5.2); RED CELL DISTRIBUTION WIDTH 13.7 % (11.5-15.0); WHITE BLOOD COUNT (AUTO) 15.1 K/uL (4.3-11.0)
[2023-09-16] MEDS: diphenhydrAMINE HCL 50 MG/ML VIAL IV ONE (22:31)
[2023-09-16] MEDS: ONDANSETRON HCL/PF 4 MG/2 ML VIAL IVP ONE (22:31)
[2023-09-16] MEDS: HYDROMORPHONE INJ 2 MG/ML DISP.SYRIN IV ONE (22:32)
[2023-09-16 22:43] LABS: CALCIUM, SERUM 9.9 mg/dL (8.5-10.1); CREATININE 1.1 mg/dL (0.6-1.3); POTASSIUM 4.1 mmol/L (3.5-5.1)
[2023-09-16 22:47] LABS: INR 1.04 (0.91-1.10); PARTIAL THROMBOPLASTIN TIME 25.1 SEC (24.3-34.3)
[2023-09-17] MEDS ORDERED: MORPHINE SULFATE INJ 4 MG/ML DISP.SYRIN ONE (02:06)
[2023-09-17] MEDS: MORPHINE SULFATE INJ 2 MG/ML DISP.SYRIN IV ONE (02:07)
[2023-09-17] MEDS ORDERED: diphenhydrAMINE HCL 50 MG/ML VIAL ONE (02:13)
[2023-09-17] MEDS: diphenhydrAMINE HCL 50 MG/ML VIAL IV ONE (02:22)
[2023-09-17 02:38] LABS: LYMPHOCYTES % (MANUAL) 10 % (16-48); MONOCYTES % (MANUAL) 3 % (0-11.0); NEUTROPHILS % (MANUAL) 87 (42-76); PLATELET ESTIMATE ADEQUATE
[2023-09-17 03:53] VITALS: BP 113/53; TEMP 98.8; O2SAT 96
== END 2023-09-17 03:53 | disposition short-term general hospital (02) ==
LOC: ER 20:10
DX: S72.091A Other fracture of head and neck of right femur, initial encounter for closed fracture (principal); I10 Essential (primary) hypertension; E11.9 Type 2 diabetes mellitus without complications; Z90.49 Acquired absence of other specified parts of digestive tract; Z88.5 Allergy status to narcotic agent; Z88.8 Allergy status to other drugs, medicaments and biological substances; Z79.899 Other long term (current) drug therapy; Z79.4 Long term (current) use of insulin; Z20.822 Contact with and (suspected) exposure to COVID-19; W01.0XXA Fall on same level from slipping, tripping and stumbling without subsequent striking against object, initial encounter; Y93.89 Activity, other specified; Y92.89 Other specified places as the place of occurrence of the external cause; Y99.8 Other external cause status
CPT/HCPCS: 99285; 72131; 96374; 96375; 71045; 87426; 93005; 72192; 85025; 80048; 36415; 85730; 96372 ×2; 85007; J1200 ×2; J1885; J2405; J1170; J2270